=== PATIENT | female | born 1960 | race Caucasian/White ===

== ENCOUNTER → 2020-07-06 14:54 | Outpatient (BNVA) | payer OTHER, SELFPAY | PROVIDERS: PCP Physician Assistant; Visit Provider Internal Medicine ==

== ENCOUNTER 2020-07-27 08:48 | Outpatient (REF) | payer OTHER, SELFPAY ==
--- NOTE | 2020-07-27 10:47 | PFT_ITS ---
FLOWS: FEV1 of 107% of predicted at 2.31 L. FVC 95% of predicted at 2.66 L. FEV1 to FVC ratio of 0.87. No bronchodilator response. LUNG VOLUMES: Total lung capacity and residual volume appears to have been an inaccurate measurement secondary to technical issues. Slow vital capacity 101% of predicted at 2.68 L. Expiratory reserve volume 93% of predicted 0.64 L. Diffusion capacity is normal. IMPRESSION: No obstructive ventilatory defect. Unable to comment on or absence presence of restrictive ventilatory defect as total lung capacity appears to be inaccurate secondary to technical reason. No bronchodilator response. Normal diffusion capacity. Baldev Chinchilla MD AP/MODL / [id number] MTDD
== END 2020-07-27 08:49 | disposition home or self-care (01) ==
LOC: HO.RESP 08:48
PROVIDERS: PCP Physician Assistant; Visit Provider Internal Medicine
DX: R05 Cough (principal); J68.3 Other acute and subacute respiratory conditions due to chemicals, gases, fumes and vapors
CPT/HCPCS: 94060; 94727; 94729